=== PATIENT | female | born 1955 | race Caucasian/White ===

== ENCOUNTER → 2016-06-27 | Outpatient (CLI) | payer OTHER ==
[~2016-06-27] MED LIST: ASPI-515 PO; ESTR1VAG VG; HYDR-3138 PO; HYDR-3240 PO; OMEG1CAP12 PO; ONDA4TAB7 PO; ROSU20TA PO; UBID1CAP24 PO
== END | disposition home or self-care (01) ==
LOC: CFH 12:35
PROVIDERS: ATTEND Internal Medicine Cardiovascular Disease
DX: I08.1 Rheumatic disorders of both mitral and tricuspid valves (principal); C92.10 Chronic myeloid leukemia, BCR/ABL-positive, not having achieved remission
CPT/HCPCS: 93306

== ENCOUNTER 2019-03-03 13:40 | Emergency (ER) | payer OTHER ==
[~2019-03-03] VITALS: Ht 170.2 cm; Wt 72.0 kg
[~2019-03-03 13:40] MED LIST changes: -HYDR-3138 PO; +HYDR-3237 PO; -OMEG1CAP12 PO; +OMEG1CAP23 PO; -ROSU20TA PO; +ROSU20TA2 PO; -UBID1CAP24 PO; +UBID1CAP43 PO
[2019-03-03 13:41] VITALS: BP 123/96
--- NOTE | 2019-03-03 14:08 | NUR ---
PT STATES SHE WOKE UP AND WAS GETTING READY TO LEAVE THE HOUSE AND NOTICED BLOOD IN HER L EYE. PT DENIES SOL, VISION CHANGES.
[2019-03-03 14:28] LABS: BASOPHILS # (AUTO) 0.03 x10^3/uL (0-0.1); BASOPHILS % (AUTO) 1 % (0-1); EOSINOPHILS # (AUTO) 0.19 x10^3/uL (0-0.4); EOSINOPHILS % (AUTO) 4 % (1-7); LYMPHOCYTES # (AUTO) 1.68 x10^3/uL (1-3.4); LYMPHOCYTES % (AUTO) 39 % (22-44); MD NO; MEAN CORPUSCULAR HEMOGLOBIN 30.9 pg (27.0-34.8); MEAN CORPUSCULAR HGB CONC 33.3 g/dL (32.4-35.8); MEAN CORPUSCULAR VOLUME 92.8 fL (80-100); MONOCYTES # (AUTO) 0.42 x10^3/uL (0.2-0.8); MONOCYTES % (AUTO) 10 % (2-9); NEUTROPHILS # (AUTO) 2.02 x10^3/uL (1.8-6.8); NEUTROPHILS % (AUTO) 46 % (42-75); PLATELET COUNT 234 x10^3/uL (130-400); RED BLOOD COUNT 5.31 x10^6/uL (3.82-5.3); RED CELL DISTRIBUTION WIDTH 12.8 % (9.6-15.2)
[2019-03-03 14:57] LABS: INTERNATIONAL NORMALIZED RATIO 1.05 (0.93-1.1)
== END 2019-03-03 15:48 ==
LOC: ED 14:13
DX: H11.32 Conjunctival hemorrhage, left eye (principal); E78.5 Hyperlipidemia, unspecified
CPT/HCPCS: 36415; 85025; 85610; 99283